=== PATIENT | female | born 1955 | race Caucasian/White ===

== ENCOUNTER 2016-12-14 10:36 | Inpatient (IN) | payer OTHER ==
[~2016-12-14 10:36] MED LIST: ALEVE220 M1 PO; ALKALETE PO; ANTI-VIRAL PO; BODY PO; BOSWELLIA PO; BROMELAIN PO; CHOLECALCIFEROL PO; CLONAZEPAM0.5 M3 SL; COLON HEALTH PO; KLONOPIN0.5 MG PO; MIRALAX17 G1 PO; MULTIVITAMINS1 EAC6 PO; NAPROSYN500 MG PO; OMEGA-31000 M1 PO; PERCOCET 5/3251 TAB PO; PERCOCET 5MG/AP1 TA1 PO; TURMERIC PO; ZOLOFT50 M1 PO; ZOLOFT50 MG PO; [UNRECOGNIZED DRUG - OTHER] PO; [UNRECOGNIZED DRUG - REMARK] PO
[2016-12-14 11:28] LABS: PROTHROMBIN TIME 11.1 SECONDS (9.0-13.6)
[2016-12-15 06:08] LABS: BASO % 0.1 % (0-2); HCT-HEMATOCRIT 34.6 % (34.0-49.0); HGB-HEMOGLOBIN 11.3 gm/dl (12.0-15.5); IMMATURE GRANULOCYTES ABSOLUTE 0.02 tho/cmm (0-0.03); IMMATURE GRANULOCYTES PERCENT 0.1 % (0-0.3); LYMPH % 10.8 % (20-45); LYMPH ABSOLUTE COUNT 1.5 tho/cmm (0.8-4.5); MCH (MEAN CORPUSCULAR HGB) 27.5 pg (28.0-32.0); MCHC MEAN CORPUSCULAR HGB CONC 32.7 % (32.0-36.0); MCV (MEAN CELL VOLUME) 84.2 fl (82.0-96.0); MEAN PLATELET VOLUME 10.1 cmc (9.4-12.4); MONO % 9.3 % (0-12); MONOCYTE ABSOLUTE COUNT 1.3 tho/cmm (0.0-1.2); NEUTROPHIL ABSOLUTE COUNT 10.7 tho/cmm (1.6-8.0); NEUTROPHIL-AUTOMATED 10.7 tho/cmm (1.6-8.0); NEUTROPHILS % 79.7 % (40-80); PLATELET COUNT 252 tho/cmm (150-450); RED BLOOD COUNT 4.11 mil/cmm (4.00-5.20); RED CELL DISTRIBUTION WIDTH 13.8 % (12.4-16.4); WHITE BLOOD COUNT 13.5 tho/cmm (4.0-10.0)
[2016-12-17 06:42] LABS: BASO % 0.3 % (0-2); EOS % 0.8 % (0-7); EOSINOPHIL ABSOLUTE COUNT 0.1 tho/cmm (0.0-0.7); HCT-HEMATOCRIT 33.4 % (34.0-49.0); HGB-HEMOGLOBIN 10.5 gm/dl (12.0-15.5); IMMATURE GRANULOCYTES ABSOLUTE 0.01 tho/cmm (0-0.03); IMMATURE GRANULOCYTES PERCENT 0.1 % (0-0.3); LYMPH ABSOLUTE COUNT 1.6 tho/cmm (0.8-4.5); MCH (MEAN CORPUSCULAR HGB) 27.3 pg (28.0-32.0); MCHC MEAN CORPUSCULAR HGB CONC 31.4 % (32.0-36.0); MCV (MEAN CELL VOLUME) 86.8 fl (82.0-96.0); MEAN PLATELET VOLUME 10.2 cmc (9.4-12.4); MONO % 12.5 % (0-12); MONOCYTE ABSOLUTE COUNT 0.9 tho/cmm (0.0-1.2); NEUTROPHIL ABSOLUTE COUNT 4.8 tho/cmm (1.6-8.0); NEUTROPHIL-AUTOMATED 4.8 tho/cmm (1.6-8.0); NEUTROPHILS % 65.3 % (40-80); PLATELET COUNT 204 tho/cmm (150-450); RED BLOOD COUNT 3.85 mil/cmm (4.00-5.20); RED CELL DISTRIBUTION WIDTH 14.1 % (12.4-16.4); WHITE BLOOD COUNT 7.4 tho/cmm (4.0-10.0)
[2016-12-17] MEDS ORDERED: ASPIRIN325 M3 PO (16:06)
[2016-12-17] MEDS ORDERED: OXYCODONE HCL5 M1 PO (16:07)
[2016-12-17] MEDS ORDERED: ULTRAM50 M1 PO (16:08)
[2016-12-17] MEDS ORDERED: PROTONIX40 M2 PO (16:09)
== END 2016-12-17 16:55 | disposition home health service (06) | DRG 468 ==
LOC: SHSC 10:36 → ORE 12:29 → PACU 16:02 → 5EA 17:30
PROVIDERS: Internal Medicine; ADMIT Orthopaedic Surgery Sports Medicine
PROC: 0SRC0J9 Replacement of Right Knee Joint with Synthetic Substitute, Cemented, Open Approach (ICD-10-PCS; principal; 2016-12-14)
PROC: 0SPC0JZ Removal of Synthetic Substitute from Right Knee Joint, Open Approach (ICD-10-PCS; 2016-12-14)
DX: T84.032A Mechanical loosening of internal right knee prosthetic joint, initial encounter (principal); F32.9 Major depressive disorder, single episode, unspecified; K59.00 Constipation, unspecified; F41.9 Anxiety disorder, unspecified; H16.143 Punctate keratitis, bilateral; H25.13 Age-related nuclear cataract, bilateral; Y83.1 Surgical operation with implant of artificial internal device as the cause of abnormal reaction of the patient, or of later complication, without mention of misadventure at the time of the procedure
CPT/HCPCS: C1713; C1776; C9290; J0690; J1885; J2270; J3010

== ENCOUNTER 2017-01-09 19:01 | Emergency (ER) | payer OTHER ==
[~2017-01-09 19:01] MED LIST changes: +ASPIRIN325 M3 PO; +OXYCODONE HCL5 M1 PO; +PROTONIX40 M2 PO; +ULTRAM50 M1 PO
[2017-01-09] MEDS ORDERED: DELTASONE20 MG PO (19:37)
[2017-01-09] MEDS ORDERED: BENADRYL25 M3 PO (19:39)
[2017-01-09] MEDS ORDERED: PEPCID20 M1 PO (20:17)
== END 2017-01-09 20:45 ==
LOC: EDMED 19:01
DX: T78.40XA Allergy, unspecified, initial encounter (principal); M54.2 Cervicalgia; Z86.718 Personal history of other venous thrombosis and embolism; K21.9 Gastro-esophageal reflux disease without esophagitis; Z90.710 Acquired absence of both cervix and uterus; Z90.89 Acquired absence of other organs; Z87.891 Personal history of nicotine dependence; Z79.82 Long term (current) use of aspirin; Z79.899 Other long term (current) drug therapy
CPT/HCPCS: J1885; J2930